=== PATIENT | female | born 1985 | race Caucasian/White ===

== ENCOUNTER 2020-01-29 17:08 | Emergency (ER) | payer SELFPAY ==
[2020-01-29 17:15] VITALS: BP 120/85; PULSE 111; RESP 16; TEMP 36.7; O2SAT 100
[2020-01-29 17:47] LABS: Basophils Absolute Auto 0.1 K/mm3 (0.0-0.1); Basophils Percent Auto 0.5 % (0.2-1.2); Eosinophils Absolute Auto 0.1 K/mm3 (0-0.3); Eosinophils Percent Auto 0.8 % (0-4.4); Hematocrit 43.7 % (37.0-47.0); Hemoglobin 14.7 g/dL (12.0-15.0); Immature Granulocyte Absolute 0.05 K/mm3 (0.00-0.031); Immature Granulocyte Percent A 0.3 % (0-0.5); Lymphocytes Absolute Auto 3.97 K/mm3 (0.9-3.2); Lymphocytes Percent Auto 27.1 % (18.3-44.2); Mean Corpuscular HGB Conc 33.6 g/dl (32-36); Mean Corpuscular Hemoglobin 30.9 pg (26-34); Mean Corpuscular Volume 91.8 fl (80-100); Mean Platelet Volume 9.5 fl (7.4-10.4); Monocytes Percent Auto 6.9 % (2.6-8.5); Neutrophils Absolute Auto 9.5 K/mm3 (1.3-6.7); Neutrophils Percent Auto 64.4 % (45.5-73.1); Platelet Count Result 353 k/mm3 (150-375); Red Blood Count 4.76 M/mm3 (4.2-5.4); Red Cell Distribution Width 13.5 % (11.5-14.5); White Blood Count 14.7 K/mm3 (4.5-10.0)
[2020-01-29 17:59] LABS: Alanine Aminotransferase 58 U/L (4-35); Albumin Level 4.5 g/dL (3.5-5.1); Alkaline Phosphatase 60 U/L (38-126); Anion Gap 10 mmol/L (8-16); Aspartate Amino Transferase 69 U/L (14-36); Bilirubin,Total 0.5 mg/dL (0.2-1.3); Blood Urea Nitrogen 11 mg/dL (7-17); Calcium 9.1 mg/dL (8.4-10.2); Carbon Dioxide 22 mmol/L (22-30); Chloride 104 mmol/L (98-107); Estimated CRCL calculation 59 ml/min; Estimated Glomerular Filt Rate 57; Glucose 101 mg/dL (65-105); Lipase 35 U/L (23-300); Potassium 3.3 mmol/L (3.4-5.0); Sodium 136 mmol/L (137-145)
--- NOTE | 2020-01-29 18:03 | ED.NAVMDI ---
HPI - Nausea/Vomiting/Diarrhea General Chief complaint: Nausea/Vomiting/Diarrhea Stated complaint: n/v Time Seen by Provider: 01/29/20 17:51 Source: patient Mode of arrival: ambulatory Limitations: no limitations History of Present Illness HPI Narrative: Patient is a 35-year-old female who presents to emergency department for evaluation of nausea coupled with concern for chlamydia noting that she had a sexual partner that told her that she may have chlamydia patient on arrival to emergency department denies any pain patient would like to have gonorrhea and chlamydia test. Patient has no other complaints and denies any current pain Related Data Home Medications Medication Instructions Recorded Confirmed No Home Medications 01/29/20 01/29/20 Allergies Allergy/AdvReac Type Severity Reaction Status Date / Time Penicillins Allergy Unknown Verified 01/29/20 18:28 Review of Systems Review of Systems: All systems reviewed & are unremarkable except as noted in HPI and below PMFSH Social History Social History (Updated 01/29/20 @ 18:05 by Maximino Pulido PA-C) Smoking status: Current every day smoker Exam Narrative: Exam Narrative: GENERAL: Well-appearing, well-nourished, and in no acute distress. HEAD: Normocephalic, atraumatic. EYES: PERRLA and EOMI. ENT: Nares clear, no rhinorrhea or epistaxis. Mucous membranes moist. CHEST: Clear to auscultation. No respiratory distress. No wheezes rales or rhonchi HEART: Regular rate and rhythm. No murmur heard. Normal peripheral pulses. ABDOMEN: Soft, nontender, nondistended EXTREMITIES: Normal range of motion. No edema. SKIN: Warm, dry, no rash. NEURO: No focal deficits. Alert and oriented x3. Cranial nerves II through XII grossly intact PSYCH: Normal mood and affect. Course Course Emergency Course: Patient refused vaginal exam was tested by her urinalysis advised to follow with primary care and will be discharged at this time Vital Signs Vital signs: Vital Signs Temperature 98.0 F 01/29/20 17:15 Pulse Rate 111 H 01/29/20 17:15 Respiratory Rate 16 01/29/20 17:15 Blood Pressure 120/85 01/29/20 17:15 Pulse Oximetry 100 01/29/20 17:15 Temperature 98.0 F 01/29/20 18:20 Pulse Rate 116 H 09/16/20 18:31 Respiratory Rate 18 01/29/20 18:20 Blood Pressure 148/89 H 01/29/20 18:31 Pulse Oximetry 100 01/29/20 18:20 MDM - Nausea/Vomiting/Diarrhea MDM Narrative Medical decision making narrative: Patient was tested and treated for STDs given she refused vaginal exam patient will follow with gynecology as advised and was given reasons to return Lab Data Result diagrams: 01/29/20 17:24 01/29/20 17:24 Labs: Lab Results 01/29/20 01/29/20 01/29/20 Range/Units 17:24 17:24 18:36 WBC 14.7 H (4.5-10.0) K/mm3 RBC 4.76 (4.2-5.4) M/mm3 Hgb 14.7 (12.0-15.0) g/dL Hct 43.7 (37.0-47.0) % MCV 91.8 (80-100) fl MCH 30.9 (26-34) pg MCHC 33.6 (32-36) g/dl RDW 13.5 (11.5-14.5) % Plt Count 353 (150-375) k/mm3 MPV 9.5 (7.4-10.4) fl Immature Gran % (Auto) 0.3 (0-0.5) % Neut % (Auto) 64.4 (45.5-73.1) % Lymph % (Auto) 27.1 (18.3-44.2) % Shelby % (Auto) 6.9 (2.6-8.5) % Eos % (Auto) 0.8 (0-4.4) % Baso % (Auto) 0.5 (0.2-1.2) % Lymph # (Auto) 3.97 H (0.9-3.2) K/mm3 Shelby # (Auto) 1.0 H (0.1-0.6) K/mm3 Eos # (Auto) 0.1 (0-0.3) K/mm3 Baso # (Auto) 0.1 (0.0-0.1) K/mm3 Abs Immat Gran (auto) 0.05 H (0.00-0.031) K/mm3 Absolute Neuts (auto) 9.5 H (1.3-6.7) K/mm3 Absolute Nucleated RBC 0.0 (0.0-0.012) K/mm3 Nucleated RBC % 0.0 (0.0-0.2) % Sodium 136 L (137-145) mmol/L Potassium 3.3 L (3.4-5.0) mmol/L Chloride 104 (98-107) mmol/L Carbon Dioxide 22 (22-30) mmol/L Anion Gap 10 (8-16) mmol/L BUN 11 (7-17) mg/dL Creatinine 1.10 H (0.7-1.0) mg/dL Estim Creat Clear Calc 59 ml/min Estimat
[2020-01-29 18:20] VITALS: BP 137/81; PULSE 108; RESP 18; TEMP 36.7; O2SAT 100
[2020-01-29 18:31] VITALS: BP 119/74; BP 137/81; BP 148/89; PULSE 108; PULSE 116; PULSE 88
[2020-01-29 18:49] LABS: Add Urine Microscopic? YES; Appearance Urine Cloudy (Clear); Bacteria Urine Trace /hpf; Bilirubin Urine Negative (Negative); Color Urine Amber (Yellow); Glucose Urine UA Negative (Negative); Hyaline Casts Urine 50+ /lpf; Ketones Urine Negative (Negative); Leukocyte Esterase Ur Negative LEU/UL (Negative); Mucus Urine Moderate /lpf; Nitrate Urine Negative (Negative); Protein Urine 2+ mg/dL (Negative); RBC Urine 0-2 /hpf (0-2); Squamous Epithelial Cell Urine Many /hpf (Few)
[2020-01-29 18:50] LABS: Blood Urine Negative (Negative); Specific Grav Ur 1.031 (1.001-1.035)
[2020-01-29] MEDS: metroNIDAZOLE 250 MG TABLET 2000 MG PO (19:00)
[2020-01-29] MEDS: AZITHROMYCIN 250 MG TABLET 1000 MG PO (19:03)
[2020-01-29] MEDS: cefTRIAXone 250 MG VIAL IM (19:07)
== END 2020-01-29 19:19 | disposition home or self-care (01) ==
PROVIDERS: Emergency Medicine Emergency Medical Services; Emergency Provider Emergency Medicine
DX: N34.2 Other urethritis (principal); F17.210 Nicotine dependence, cigarettes, uncomplicated
CPT/HCPCS: 36415; 80053; 81001; 81025; 83690; 85025; 87086; 87491; 87591; 96372; 99284; A9270; J0696